=== PATIENT | female | born 1995 | race Caucasian/White ===

== ENCOUNTER 2018-04-12 20:03 | Inpatient (IN) | payer MEDICAID ==
[2018-04-12 20:47] LABS: ADD UMIC YES; UR ASCORBIC ACID 20 mg/dL (NEGATIVE); UR BACTERIA FEW /HPF (NONE SEEN); UR BILIRUBIN (Dip) NEGATIVE (NEGATIVE); UR BLOOD (Dip) 2+ mg/dL (NEGATIVE); UR BUDDING YEAST FEW /HPF (NONE SEEN); UR CLARITY CLEAR (CLEAR); UR COLOR YELLOW (YELLOW); UR GLUCOSE (Dip) NEGATIVE (NEGATIVE); UR KETONES (Dip) NEGATIVE (NEGATIVE); UR LEUKOCYTE ESTERASE (Dip) NEGATIVE Leu/ul (NEGATIVE); UR NITRITE (Dip) NEGATIVE (NEGATIVE); UR RBC > 182 /HPF (0-5); UR SPECIFIC GRAVITY (Dip) 1.016 (1.003-1.030); UR SQUAMOUS EPITHELIAL CELL FEW /HPF (FEW); UR TOTAL PROTEIN (Dip) 1+ mg/dl (NEGATIVE); UR UROBILINOGEN (Dip) NEGATIVE (NEGATIVE); UR WBC 4 /HPF (0-5)
[2018-04-12] MEDS ORDERED: LACTATED RINGER'S 1,000 ML IV (22:04)
[2018-04-12] MEDS ORDERED: CARBOPROST 250 MCG INJ IM (22:30)
[2018-04-12] MEDS ORDERED: METHYLERGONOVINE 0.2 MG INJ IM (22:30)
[2018-04-12] MEDS ORDERED: LIDOCAINE 1% (MPF) 30 ML INJ INJ (22:30)
[2018-04-12] MEDS ORDERED: IBUPROFEN 600 MG TAB PO (22:30)
[2018-04-12] MEDS ORDERED: MISOPROSTOL 200 MCG TAB PR (22:30)
[2018-04-12] MEDS: LACTATED RINGER'S 1,000 ML IV (23:16)
[2018-04-12 23:55] LABS: ADD MAN DIFF? NO
[2018-04-12 23:59] LABS: BASOPHILS % 0.3 % (0.0-2.0); EOSINOPHILS # 0.1 10^3/ul (0.0-0.5); EOSINOPHILS % 0.8 % (0.0-7.0); HEMOGLOBIN 12.1 g/dl (12.0-16.0); LYMPHOCYTES # 1.9 10^3/ul (0.8-2.9); LYMPHOCYTES % 24.6 % (15.0-51.0); MEAN CORPUSCULAR HEMOGLOBIN 29.6 pg (29.0-33.0); MEAN CORPUSCULAR HGB CONC 33.6 g/dl (32.0-37.0); MEAN PLATELET VOLUME 9.6 fl (7.4-10.4); MONOCYTE # 0.5 10^3/ul (0.3-0.9); MONOCYTES % 6.7 % (0.0-11.0); NEUTROPHIL # 5.2 10^3/ul (1.6-7.5); PLATELET COUNT 307 10^3/UL (140-415); RED BLOOD COUNT 4.09 10^6/ul (4.20-5.40); RED CELL DISTRIBUTION WIDTH 13.2 % (11.5-14.5)
[2018-04-12 23:59] LABS: WHITE BLOOD COUNT 7.8 10^3/ul (4.8-10.8)
[2018-04-13 00:27] LABS: INR 0.86; PROTIME 11.8 Sec (11.9-14.9); PT RATIO 0.9
[2018-04-13 00:28] LABS: PARTIAL THROMBOPLASTIN TIME 26.7 Sec (23.0-35.0)
[2018-04-13 01:43] LABS: HEPATITIS B SURFACE ANTIGEN NEGATIVE (NEGATIVE)
[2018-04-13] MEDS: LACTATED RINGER'S 1,000 ML IV (06:00)
[2018-04-13] MEDS ORDERED: OXYTOCIN 30 UNITS/LR 500 ML IV ×2 (07:00→10:00)
[2018-04-13] MEDS: OXYTOCIN 30 UNITS/LR 500 ML IV ×4 (08:11→14:46)
[2018-04-13] MEDS: BUTORPHANOL 2 MG INJ IV (09:53)
[2018-04-13] MEDS ORDERED: NACL 0.9% 3 ML SYG IV (10:00)
[2018-04-13] MEDS ORDERED: ONDANSETRON 4 MG INJ IV (10:00)
[2018-04-13] MEDS ORDERED: OXYCODONE/ASPIRIN (4.88/325) TAB PO ×2 (10:00)
[2018-04-13] MEDS ORDERED: MISOPROSTOL 200 MCG TAB PR (10:00)
[2018-04-13] MEDS ORDERED: METHYLERGONOVINE 0.2 MG INJ IM (10:00)
[2018-04-13] MEDS ORDERED: CARBOPROST 250 MCG INJ IM (10:00)
[2018-04-13] MEDS ORDERED: SENNA/DOCUSATE NA (8.6MG/50MG) TAB PO (10:00)
[2018-04-13 15:26] LABS: RAPID PLASMA REAGIN NONREACTIVE (NR)
[2018-04-13] MEDS: LANOLIN 7 GM TUBE TOP (17:43)
[2018-04-13] MEDS: IBUPROFEN 600 MG TAB PO ×2 (17:43→18:00)
[2018-04-13] MEDS: BENZOCAINE 20% 56 ML SPRAY TOP (17:44)
[2018-04-13] MEDS: WITCH HAZEL/GLYCERIN PAD PR (17:44)
[2018-04-13] MEDS: SENNA/DOCUSATE NA (8.6MG/50MG) TAB PO (21:12)
[2018-04-14] MEDS: IBUPROFEN 600 MG TAB PO ×5 (00:40→23:34)
[2018-04-14 08:32] LABS: ADD MAN DIFF? NO
[2018-04-14 08:38] LABS: BASOPHILS % 0.3 % (0.0-2.0); EOSINOPHILS # 0.1 10^3/ul (0.0-0.5); EOSINOPHILS % 1.5 % (0.0-7.0); HEMATOCRIT 30.4 % (37.0-47.0); HEMOGLOBIN 10.2 g/dl (12.0-16.0); LYMPHOCYTES # 2.4 10^3/ul (0.8-2.9); MEAN CORPUSCULAR HEMOGLOBIN 30.4 pg (29.0-33.0); MEAN CORPUSCULAR HGB CONC 33.6 g/dl (32.0-37.0); MEAN CORPUSCULAR VOLUME 90.7 fl (82.0-101.0); MEAN PLATELET VOLUME 9.7 fl (7.4-10.4); MONOCYTE # 0.6 10^3/ul (0.3-0.9); MONOCYTES % 6.5 % (0.0-11.0); NEUTROPHIL # 5.7 10^3/ul (1.6-7.5); NEUTROPHILS % 63.9 % (39.0-77.0); PLATELET COUNT 272 10^3/UL (140-415); RED BLOOD COUNT 3.35 10^6/ul (4.20-5.40); RED CELL DISTRIBUTION WIDTH 13.1 % (11.5-14.5)
[2018-04-14 08:38] LABS: WHITE BLOOD COUNT 8.9 10^3/ul (4.8-10.8)
[2018-04-14] MEDS: SENNA/DOCUSATE NA (8.6MG/50MG) TAB PO ×2 (09:11→21:25)
[2018-04-14] MEDS: LANOLIN 7 GM TUBE TOP (17:36)
[2018-04-15] MEDS: IBUPROFEN 600 MG TAB PO (05:50)
[2018-04-15] MEDS: SENNA/DOCUSATE NA (8.6MG/50MG) TAB PO (09:28)
== END 2018-04-15 12:15 | disposition home or self-care (01) | DRG 807 ==
LOC: PP1 04-13 16:45 → OBT 20:03 → L-D 20:03 → OBT 21:46 → L-D 22:15
PROC: 4A1HXCZ Monitoring of Products of Conception, Cardiac Rate, External Approach (ICD-10-PCS; 2018-04-12)
PROC: 10E0XZZ Delivery of Products of Conception, External Approach (ICD-10-PCS; principal; 2018-04-13)
PROC: 0HQ9XZZ Repair Perineum Skin, External Approach (ICD-10-PCS; 2018-04-13)
DX: O70.0 First degree perineal laceration during delivery (principal); Z37.0 Single live birth; Z3A.39 39 weeks gestation of pregnancy
CPT/HCPCS: 76815; 76818; 81001; 85025; 85610; 85730; 86592; 86850; 86900; 86901; 87340; 99464